=== PATIENT | male | born 1945 | race Hispanic/Latino ===

== ENCOUNTER 2023-01-25 06:33 | Day surgery (SDC) | payer OTHER ==
[2023-01-22 14:00] LABS: Absolute Lymphocytes (CBC) 2.4 K/uL (0.7-4.9); Hematocrit 40.7 % (39.6-49.0); Lymphocytes % 27.4 % (15.3-44.8); MCV 83.1 fL (80-100); MPV 6.9 fL (7.6-11.3)
[2023-01-22 14:14] LABS: Potassium 3.8 mmol/L (3.5-5.1)
[2023-01-22 14:21] LABS: Protime INR 1.02
--- NOTE | 2023-01-22 14:26 | RAD REPORT ---
EXAM DESCRIPTION: [facility] And Lat (2 Views)01/22/2023 1:46 pm CLINICAL HISTORY: pre op for laborer/grade check COMPARISON: CHEST PA AND LAT 2 VIEW dated 12/12/2014; ABDOMEN 1 VIEW KUB dated 01/07/2014 TECHNIQUE: PA and lateral views of the chest. FINDINGS: The lungs are clear. No pneumothorax or effusion. The cardiomediastinal contours are unrem arkable. IMPRESSION: No acute cardiopulmonary process.
--- NOTE | 2023-01-23 15:24 | EKG ---
Test Date: 2023-01-22 Test Time: 13:24:21 Volleyball Assembler: MEASUREMENT RESULTS: Intervals: Rate: 76 IN: 150 QRSD: 84 QT: 406 QTc: 456 Logan: P: 33 IN: 150 QRS: -4 T: 80 INTERPRETIVE STATEMENTS: Normal sinus rhythm Possible Left atrial enlargement Inferior infarct, age undetermined Anteroseptal infarct, age undetermined Abnormal ECG Compared to ECG 01/22/2023 13:23:39 No significant changes Electronically Signed On 01-23-23 15:20:20 WAREHOUSE LABORER by Greg Oconnell
[~2023-01-25 06:33] MED LIST: ATROPINE SULF 1 MG/10 ML SYR IV ONE; FENTANYL CITR 100 MCG/2 ML ONE; HEPA 1000U/500MLS 2,000 UNIT/1,000 ML BAG IV ONE; HEPARIN 10,000 UNIT/10 ML VIAL IV ONE; HEPARIN 5000 UNIT/ML 1 ML VIAL ONE; LIDOCAINE 1% 20 ML MDV ONE; MIDAZOLAM HCL 2 MG/2 ML INJ ONE; NA CHLORIDE 0.9% 500 ML ONE; NITROGLYCERIN 100 MCG/ML SYR (for cath lab use only) IV ONE; NITROGLYCERIN/D5W 25 MG/250 ML BTL IV ONE; VERAPAMIL HCL 10 MG/4 ML VIAL IV ONE
[2023-01-25 06:54] VITALS: TEMP 97.6
[2023-01-25] MEDS ORDERED: CLOPIDOGREL 75 MG TABLET ONE (07:29)
[2023-01-25] MEDS ORDERED: ASPIRIN 325 MG TAB ONE (07:29)
[2023-01-25] MEDS ORDERED: HYDRALAZINE HCL 20 MG/ML VIAL ONE (07:29)
[2023-01-25] MEDS ORDERED: TICAGRELOR 90 MG TABLET PO ONE (07:29)
[2023-01-25 09:34] VITALS: O2SAT 99
--- NOTE | 2023-01-25 09:35 | OP ---
Date of Procedure: 01/25/2023 Surgeon: GURMEET LO Procedures Performed: 1.Selective coronary angiogram. 2.Left heart catheterization. Indications: Severe aortic valve stenosis. Description Of Procedure: After risks, benefits, and alternatives were explained, the patient agreed to procedure and signed informed consent. The patient was brought into the cardiac catheterization laboratory, prepped and draped in the usual fashion. Then, I accessed right radial artery using pedi atric micropuncture kit and placed a 6-Macedonian Slender sheath and took a 5-Macedonian [place] 4.0 catheter i nto the aortic root, engaged the left main and the right coronary artery, took standard views, and th en removed the catheter and sheath, placed TR band with good hemostasis. Findings: 1.Left main; large and normal. 2.LAD; proximal diffuse 40% stenosis and then mid 50% to 60% stenosis. He has ramus with proximal 5 0% stenosis. 3.Left circumflex; it is moderate size. First OM is very small with heavily diseased. Second OM is moderate size, has 50% to 60% stenosis. 4.RCA; very large and dominant, heavily calcified, proximal 80%, mid 60%. Tandem lesions at least 2 of them. 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 Recommendation: PCI with shockwave of the RCA before the TAVR. /AMNA Voice ID: [id number] Report ID: [id number]
[2023-01-25 09:46] VITALS: BP 158/89
== END 2023-01-25 10:09 | disposition home or self-care (01) ==
LOC: CCL 06:33
PROVIDERS: ATTEND Internal Medicine
DX: I25.10 Atherosclerotic heart disease of native coronary artery without angina pectoris (principal); I35.2 Nonrheumatic aortic (valve) stenosis with insufficiency; I65.23 Occlusion and stenosis of bilateral carotid arteries; I10 Essential (primary) hypertension; E11.9 Type 2 diabetes mellitus without complications; E78.6 Lipoprotein deficiency; Z79.899 Other long term (current) drug therapy; Z87.891 Personal history of nicotine dependence; Z82.49 Family history of ischemic heart disease and other diseases of the circulatory system
CPT/HCPCS: 93005; 85025; 80048; 36415; 85610; 82947; 85730; 71046; 93458; 76937; C1893; Q9966; J2001; J1644 ×2; J2250; J3010; J7040; J0360; J0461